=== PATIENT | female | born 1980 | race Caucasian/White ===

== ENCOUNTER → 2016-06-07 | Outpatient (REF) | payer OTHER | LOC: M SFHCLERA 20:37 | PROVIDERS: ATTEND Nurse Practitioner Family | DX: R50.9 Fever, unspecified (principal) ==

== ENCOUNTER → 2016-09-19 | Outpatient (REF) | payer OTHER ==
[2016-09-19 18:19] LABS: ANION GAP 7 MEQ/L (8-16); BLOOD UREA NITROGEN 8 MG/DL (7-18); CALCIUM LEVEL 9.3 MG/DL (8.5-10.1); CARBON DIOXIDE LEVEL 28 MEQ/L (21-32); CHLORIDE LEVEL 104 MEQ/L (98-107); CHOLESTEROL LEVEL 211 MG/DL (<200); GLOMERULAR FILTRATION RATE > 60.0 (>60); GLUCOSE, FASTING 86 MG/DL (70-105); POTASSIUM SERUM 4.6 MEQ/L (3.5-5.1); SODIUM LEVEL 139 MEQ/L (136-145); TRIGLYCERIDES LEVEL 223 MG/DL (<150)
== END ==
LOC: M SFHCLERA 10:27
PROVIDERS: ATTEND Family Medicine
DX: R73.02 Impaired glucose tolerance (oral) (principal); E78.5 Hyperlipidemia, unspecified

== ENCOUNTER → 2016-09-26 | Outpatient (CLI) | payer OTHER ==
--- NOTE | 2016-09-27 02:57 | REP ---
Clinical: Pain . Technique: AP, lateral, bilateral oblique views right foot . Findings: The osseous structures and joint spaces are intact and normal. There is no evidence for acute fracture or dislocation. Surrounding soft tissues are unremarkable. No subcutaneous emphysema or radiodense foreign body. Impression: Normal examination . No acute fracture or dislocation. Signed by Noe George MD 09/27/2016 02:49 A
== END ==
LOC: M LRY 08:56
PROVIDERS: ATTEND Family Medicine
DX: M79.674 Pain in right toe(s) (principal)

== ENCOUNTER → 2016-09-26 | Outpatient (REF) | payer OTHER ==
[2016-09-26 11:42] LABS: BASO % 0.6 % (0.0-1.0); EOS % 0.7 % (0.0-3.0); LARGE UNSTAINED CELL # 0.1 K/mm3 (0.0-0.4); LARGE UNSTAINED CELL % 1.1 % (0.0-4.0); LYMPH # 1.7 K/mm3 (1.5-4.5); LYMPH % 24.2 % (24.0-44.0); MEAN CORPUSCULAR HEMOGLOBIN 30.3 pg (27.0-33.0); MEAN CORPUSCULAR HGB CONC 34.1 g/dl (32.0-36.5); MONO # 0.4 K/mm3 (0.0-0.8); MONO % 5.6 % (0.0-5.0); NEUTROPHILS # 4.5 K/mm3 (1.8-7.7); NEUTROPHILS % 67.7 % (36.0-66.0); PLATELET COUNT, AUTOMATED 293 k/mm3 (150-450); RED CELL DISTRIBUTION WIDTH 12.4 % (11.5-14.5); WHITE BLOOD COUNT 6.6 K/mm3 (4.0-10.0)
[2016-09-26 12:08] LABS: FREE T4 1.07 NG/DL (0.76-1.46)
== END ==
LOC: M SFHCLERA 08:33
PROVIDERS: ATTEND Family Medicine
DX: F34.1 Dysthymic disorder (principal)

== ENCOUNTER → 2017-03-09 | Outpatient (CLI) | payer OTHER ==
[2017-03-15 10:11] LABS: H PYLORI STOOL ANTIGEN Negative (Negative)
[2017-03-15 10:11] LABS: IGASUB3 31.8 mg/dL (13.4-97.9); IgA SERUM (part of Subclasses) 288 mg/dL (87-352); O+P EXAM Final report (.); TISSUE TRANSGLUTAMINASE IgA <2 U/mL (0-3)
== END ==
LOC: M LAB 15:40
DX: R19.7 Diarrhea, unspecified (principal)
CPT/HCPCS: 82784

== ENCOUNTER 2017-03-27 09:19 | Day surgery (SDC) | payer OTHER ==
[2017-03-27] MEDS: NS 1,000 ML IV (10:21)
[2017-03-27] MEDS ORDERED: PROPOFOL 200 MG/20 ML VIAL As Ordered ×2 (11:27→11:29)
[2017-03-27] MEDS ORDERED: LIDOCAINE 2% INJ 100 MG/5 ML SDV (FOR ANES.) As Ordered (11:27)
[2017-03-27] MEDS ORDERED: ESMOLOL INJ 100MG/10ML VIAL As Ordered (11:37)
== END 2017-03-27 12:31 | disposition home or self-care (01) ==
LOC: M OPP 09:19
DX: K62.5 Hemorrhage of anus and rectum (principal); R19.7 Diarrhea, unspecified; K57.30 Diverticulosis of large intestine without perforation or abscess without bleeding; K64.8 Other hemorrhoids; E78.5 Hyperlipidemia, unspecified; E11.9 Type 2 diabetes mellitus without complications; F41.9 Anxiety disorder, unspecified; F43.10 Post-traumatic stress disorder, unspecified; E28.2 Polycystic ovarian syndrome; Z88.0 Allergy status to penicillin; Z91.040 Latex allergy status; Z79.899 Other long term (current) drug therapy; Z80.3 Family history of malignant neoplasm of breast; Z80.1 Family history of malignant neoplasm of trachea, bronchus and lung; Z80.41 Family history of malignant neoplasm of ovary
CPT/HCPCS: 45380

== ENCOUNTER → 2017-03-30 | Outpatient (REF) | payer OTHER ==
[2017-03-31 12:13] LABS: ALBUMIN 3.9 GM/DL (3.2-5.2); ALBUMIN/GLOBULIN RATIO 1.15 (1.00-1.93); ALKALINE PHOSPHATASE 49 U/L (45-117); ALT/SGPT 21 U/L (12-78); ANION GAP 6 MEQ/L (8-16); AST/SGOT 18 U/L (7-37); BILIRUBIN,TOTAL 0.6 MG/DL (0.2-1.0); BLOOD UREA NITROGEN 11 MG/DL (7-18); CALCIUM LEVEL 9.3 MG/DL (8.5-10.1); CARBON DIOXIDE LEVEL 29 MEQ/L (21-32); CHLORIDE LEVEL 104 MEQ/L (98-107); CREATININE FOR GFR 0.74 MG/DL (0.55-1.02); GLOMERULAR FILTRATION RATE > 60.0 (>60); GLUCOSE, FASTING 71 MG/DL (70-100); POTASSIUM SERUM 4.6 MEQ/L (3.5-5.1); SODIUM LEVEL 139 MEQ/L (136-145); TOTAL PROTEIN 7.3 GM/DL (6.4-8.2)
[2017-03-31 12:27] LABS: BASO # 0.1 10^3/uL (0.0-0.2); BASO % 1.1 % (0.0-1.0); EOS # 0.1 10^3/uL (0.0-0.50); EOS % 1.3 % (0.0-3.0); HEMOGLOBIN 14.3 g/dl (12.0-16.0); IMMATURE GRANULOCYTE % 0.3 % (0-0); LYMPH # 2.3 10^3/uL (1.5-4.5); LYMPH % 30.6 % (24.0-44.0); MEAN CORPUSCULAR HEMOGLOBIN 29.2 pg (27.0-33.0); MEAN CORPUSCULAR HGB CONC 33.3 g/dl (32.0-36.5); MEAN CORPUSCULAR VOLUME 87.8 fl (80.0-96.0); MONO # 0.6 10^3/uL (0.0-0.8); MONO % 7.4 % (0.0-5.0); NEUTROPHILS # 4.5 10^3/uL (1.8-7.7); NEUTROPHILS % 59.3 % (36.0-66.0); PLATELET COUNT, AUTOMATED 337 10^3/uL (150-450); RED CELL DISTRIBUTION WIDTH 11.9 % (11.5-14.5); WHITE BLOOD COUNT 7.6 10^3/uL (4.0-10.0)
== END ==
LOC: M SFHCLERA 16:08
DX: R10.9 Unspecified abdominal pain (principal)

== ENCOUNTER → 2017-07-03 | Outpatient (REF) | payer OTHER ==
[2017-07-04 13:29] LABS: ESTIMATED AVERAGE GLUCOSE 117 MG/DL (60-110); HEMOGLOBIN A1c 5.7 %
== END ==
LOC: M SFHCLERA 15:19
DX: E28.2 Polycystic ovarian syndrome (principal); Z79.899 Other long term (current) drug therapy
CPT/HCPCS: 83036

== ENCOUNTER → 2017-11-02 | Outpatient (CLI) | payer MEDICARE, OTHER | LOC: M LRY 14:26 | DX: R63.5 Abnormal weight gain (principal); N39.46 Mixed incontinence ==

== ENCOUNTER → 2017-11-02 | Outpatient (REF) | payer MEDICARE, OTHER ==
[2017-11-02 20:41] LABS: BASO # 0.1 10^3/uL (0.0-0.2); BASO % 0.6 % (0.0-1.0); EOS # 0.1 10^3/uL (0.0-0.50); HEMATOCRIT 39.4 % (36.0-47.0); HEMOGLOBIN 13.3 g/dl (12.0-15.5); IMMATURE GRANULOCYTE % 0.2 % (0-3.0); LYMPH # 2.4 10^3/uL (1.5-4.5); LYMPH % 29.4 % (24.0-44.0); MEAN CORPUSCULAR HGB CONC 33.8 g/dl (32.0-36.5); MONO # 0.6 10^3/uL (0.0-0.8); MONO % 7.1 % (0.0-5.0); NEUTROPHILS % 61.7 % (36.0-66.0); PLATELET COUNT, AUTOMATED 307 10^3/uL (150-450); RED BLOOD COUNT 4.58 10^6/uL (4.00-5.40); RED CELL DISTRIBUTION WIDTH 12.6 % (11.5-14.5); WHITE BLOOD COUNT 8.1 10^3/uL (4.0-10.0)
[2017-11-02 20:51] LABS: APPEARANCE, URINE HAZY (CLEAR); BACTERIA, URINE AUTO NEGATIVE (NEGATIVE); BILIRUBIN, URINE AUTO NEGATIVE (NEGATIVE); BLOOD, URINE BLOOD NEGATIVE (NEGATIVE); COLOR, URINE YELLOW (YELLOW); GLUCOSE, URINE (UA) AUTO 1+ mg/dL (NEGATIVE); KETONE, URINE AUTO NEGATIVE (NEGATIVE); LEUKOCYTE ESTERASE, URINE AUTO NEGATIVE (NEGATIVE); NITRITE, URINE AUTO NEGATIVE (NEGATIVE); PROTEIN, URINE AUTO NEGATIVE (NEGATIVE); RBC, URINE AUTO 0 /HPF (0-3); SQUAMOUS EPITHELIAL CELL UR AU 0 /HPF (0-6); WBC, URINE AUTO 0 /HPF (0-3)
[2017-11-02 20:53] LABS: ALBUMIN 3.3 GM/DL (3.2-5.2); ALBUMIN/GLOBULIN RATIO 0.92 (1.00-1.93); ALKALINE PHOSPHATASE 46 U/L (45-117); ALT/SGPT 17 U/L (12-78); ANION GAP 5 MEQ/L (8-16); AST/SGOT 12 U/L (7-37); BILIRUBIN,TOTAL 0.5 MG/DL (0.2-1.0); BLOOD UREA NITROGEN 7 MG/DL (7-18); CALCIUM LEVEL 9.1 MG/DL (8.5-10.1); CARBON DIOXIDE LEVEL 30 MEQ/L (21-32); CHLORIDE LEVEL 106 MEQ/L (98-107); CREATININE FOR GFR 0.76 MG/DL (0.55-1.30); FREE T4 0.94 NG/DL (0.76-1.46); GLOMERULAR FILTRATION RATE > 60.0 (>60); GLUCOSE, FASTING 103 MG/DL (70-100); POTASSIUM SERUM 4.3 MEQ/L (3.5-5.1); SODIUM LEVEL 141 MEQ/L (136-145); THYROID STIMULATING HORMONE 0.943 uIU/ML (0.358-3.740); TOTAL PROTEIN 6.9 GM/DL (6.4-8.2)
== END ==
LOC: M SFHCLERA 14:49
DX: R63.5 Abnormal weight gain (principal); N39.46 Mixed incontinence
CPT/HCPCS: 84443

== ENCOUNTER → 2018-04-19 | Outpatient (REF) | payer OTHER ==
[~2018-04-19] MED LIST: ALLE180T33 PO; METF500T13 PO; MULT1TAB10 PO; SERT25TA88; TRI-TAB; ZETI10TA30 PO
== END ==
LOC: M SFHCLERA 15:50
PROVIDERS: ATTEND Physician Assistant
DX: R50.9 Fever, unspecified (principal)

== ENCOUNTER → 2019-08-29 | Outpatient (REF) | payer OTHER ==
[~2019-08-29] MED LIST changes: +SERT25TA21; -SERT25TA88; +ZETI10TA16 PO; -ZETI10TA30 PO
== END ==
LOC: M SFHCLERA 10:32
PROVIDERS: ATTEND Physician Assistant
DX: R30.0 Dysuria (principal)

== ENCOUNTER → 2019-09-02 | Outpatient (REF) | payer OTHER ==
[2019-09-02 19:19] LABS: APPEARANCE, URINE CLEAR (CLEAR); BACTERIA, URINE AUTO 1+ (NEGATIVE); BILIRUBIN, URINE AUTO NEGATIVE (NEGATIVE); BLOOD, URINE BLOOD NEGATIVE (NEGATIVE); COLOR, URINE STRAW (YELLOW); GLUCOSE, URINE (UA) AUTO 1+ mg/dL (NEGATIVE); KETONE, URINE AUTO NEGATIVE (NEGATIVE); LEUKOCYTE ESTERASE, URINE AUTO NEGATIVE (NEGATIVE); MUCUS, URINE SMALL (NEGATIVE); NITRITE, URINE AUTO NEGATIVE (NEGATIVE); PROTEIN, URINE AUTO NEGATIVE (NEGATIVE); RBC, URINE AUTO 1 /HPF (0-3); SPECIFIC GRAVITY URINE AUTO 1.004 (1.002-1.035); SQUAMOUS EPITHELIAL CELL UR AU 0 /HPF (0-6); UROBILINOGEN, URINE AUTO 0.2 mg/dL (0.0-2.0); WBC, URINE AUTO 0 /HPF (0-3)
[2019-09-02 20:24] LABS: CHLAMYDIA DNA AMPLIFICATION NEGATIVE (NEGATIVE); GC DNA AMPLIFICATION NEGATIVE (NEGATIVE)
== END ==
LOC: M SFHCLERA 16:41
PROVIDERS: ATTEND Family Medicine
DX: R10.9 Unspecified abdominal pain (principal)

== ENCOUNTER → 2019-09-12 | Outpatient (CLI) | payer BC, OTHER ==
--- NOTE | 2019-09-13 03:06 | REP ---
REASON FOR EXAM: Pelvic pain. There are no priors for comparison. Transvesical and transvaginal imaging was obtained. The uterus measures 8.9 x 4 x 4.7 cm. The parenchymal echo pattern is within normal limits. The endometrial echo complex is within normal limits, measuring 5 mm in its greatest thickness. The right ovary measures 3 x 2.3 x 2.4 cm. Within the right ovary, there is a 2.4 x 1.9 x 1.9 cm sized anechoic structure, which exhibits posterior wall enhancement and increased through-transmission, consistent with a simple cyst. The right ovarian RI is 0.59. Left ovary measures 2 x 1.2 x 1.5 cm and is within normal limits. Urinary bladder measures 14 x 9 x 9 cm. IMPRESSION: Simple right ovarian cyst, as described above. Electronically Signed by Kenan Cohen DO 09/13/2019 09:13 A
== END ==
LOC: M LRY 09:20
PROVIDERS: ATTEND Family Medicine
DX: N83.201 Unspecified ovarian cyst, right side (principal)

== ENCOUNTER → 2020-08-27 | Outpatient (CLI) | payer BC, OTHER ==
[~2020-08-27] MED LIST changes: +ISOVUE-370 76% 100ML VIAL As Ordered ONE
--- NOTE | 2020-08-27 20:06 | REPVR ---
PROCEDURE INFORMATION: Exam: CTA Chest With Contrast Exam date and time: 08/27/2020 6:31 PM Age: 40 years old Clinical indication: Dyspnea; Additional info: Dyspnea, unspecified TECHNIQUE: Imaging protocol: Computed tomographic angiography of the chest with contrast. 3D rendering (Not supervised by radiologist): MIP and/or 3D reconstructed images were created by the technologist. Radiation optimization: All CT scans at this facility use at least one of these dose optimization techniques: automated exposure control; mA and/or kV adjustment per patient size (includes targeted exams where dose is matched to clinical indication); or iterative reconstruction. Contrast material: ISOVUE 370; Contrast volume: 75 ml; Contrast route: INTRAVENOUS (IV); COMPARISON: No relevant prior studies available. FINDINGS: Pulmonary arteries: Normal. No pulmonary emboli. Aorta: Unremarkable. No aortic aneurysm. No aortic dissection. Lungs: Unremarkable. No consolidation. No masses. Pleural spaces: Unremarkable. No pneumothorax. No pleural effusion. Heart: Unremarkable. No cardiomegaly. No pericardial effusion. Lymph nodes: Unremarkable. No enlarged lymph nodes. Bones/joints: Unremarkable. No acute fracture. Soft tissues: Unremarkable. IMPRESSION: No acute findings. Electronically signed by: James Dennis On 08/27/2020 20:05:38 PM
== END ==
LOC: M RAD 18:05
PROVIDERS: ATTEND Nurse Practitioner Family
DX: R06.00 Dyspnea, unspecified (principal)
CPT/HCPCS: 71275; Q9967

== ENCOUNTER → 2020-09-14 | Outpatient (CLI) | payer BC, OTHER ==
[~2020-09-14] MED LIST changes: +ALBU8.5H; +EZET10TA21 PO; +FLUO40CA; +HYDR-643; +IBUP-1022 PO; -ISOVUE-370 76% 100ML VIAL As Ordered ONE; +OXYB5TAB10; +OXYC1TAB23 PO; +TRAZ-252; +ZYRTTAB8 PO
== END ==
LOC: M LABSMTC 09:47
PROVIDERS: ATTEND Anesthesiology
DX: Z01.818 Encounter for other preprocedural examination (principal); Z11.52 Encounter for screening for COVID-19

== ENCOUNTER 2020-09-18 08:09 | Day surgery (SDC) | payer BC, OTHER ==
[2020-09-18] VITALS (7 sets, daily range): BP systolic 99–152; BP diastolic 59–93
[~2020-09-18] VITALS: Ht 157.5 cm; Wt 83.4 kg
[~2020-09-18 08:09] MED LIST changes: +HYDROmorphone HCL 2 MG/ML 1ML VIAL (J1170) As Ordered ONE; -IBUP-1022 PO; +KETOROLAC 60MG 2ML VIAL As Ordered ONE; +LIDOCAINE 1% MDV 20ML VIAL SQ PRN; +LIDOCAINE 2% 100MG/5ML SDV (FOR ANES.) As Ordered ONE; +LR 1,000 ML IV ONE; +MIDAZOLAM INJ 2MG/2ML VIAL (J2250 PER 1MG) As Ordered ONE; +ONDANSETRON 4MG/2ML VIAL As Ordered ONE; -OXYC1TAB23 PO; +ROCURONIUM BROMIDE 50 MG/5 ML VIAL As Ordered ONE; +dexameTHASONE 4 MG/ML 1ML VIAL (J1100 PER 1MG) As Ordered ONE; +fentaNYL 100 MCG/2 ML INJECTION (J3010) As Ordered ONE; +propofoL 200 MG/20 ML VIAL As Ordered ONE
[2020-09-18 08:40] LABS: HEMATOCRIT 41.6 % (36.0-47.0); HEMOGLOBIN 13.7 g/dl (12.0-15.5); MEAN CORPUSCULAR HEMOGLOBIN 28.7 pg (27.0-33.0); MEAN CORPUSCULAR HGB CONC 32.9 g/dl (32.0-36.5); PLATELET COUNT, AUTOMATED 322 10^3/uL (150-450); RED BLOOD COUNT 4.78 10^6/uL (4.00-5.40)
[2020-09-18] MEDS ORDERED: ceFAZolin SOD 2 GM in IV 1 EA IV ONE (09:00)
[2020-09-18 09:03] LABS: BLOOD UREA NITROGEN 11 MG/DL (7-18); CALCIUM LEVEL 8.7 MG/DL (8.5-10.1); CARBON DIOXIDE LEVEL 24 MEQ/L (21-32); CHLORIDE LEVEL 110 MEQ/L (98-107); CREATININE FOR GFR 0.79 MG/DL (0.55-1.30); GLOMERULAR FILTRATION RATE > 60.0 (>58); GLUCOSE, FASTING 100 MG/DL (70-100); POTASSIUM SERUM 4.2 MEQ/L (3.5-5.1); SODIUM LEVEL 139 MEQ/L (136-145)
[2020-09-18] MEDS ORDERED: BUPIVACAINE HCL 0.25% 10ML VIAL As Ordered ONE (09:13)
[2020-09-18] MEDS ORDERED: ACETAMINOPHEN 1000MG 100ML IV BTL (OFIRMEV) (J0131 PER 10MG) As Ordered ONE (09:37)
[2020-09-18] MEDS ORDERED: SUGAMMADEX SODIUM 500 MG/5 ML VIAL (BRIDION) As Ordered ONE (10:01)
[2020-09-18] MEDS ORDERED: ROCURONIUM BROMIDE 50 MG/5 ML VIAL As Ordered ONE (10:15)
--- NOTE | 2020-09-18 11:31 | ROOPDOC ---
[facility] Report Of Operation Report of Operation DATE OF PROCEDURE: 09/18/20 OPERATIVE REPORT: Preoperative diagnosis: Menorrhagia, pelvic pain. Postoperative diagnosis: Same. Procedure: Robotic-assisted laparoscopic hysterectomy, right salpingo- oophorectomy, left salpingectomy, cystoscopy. Surgeon: Meron Aguilera M.D. Market Development Analyst: Bree Echavarria NP EBL: 100 mL's. Urine output: 100 mL's. Operative summary: Patient was taken to the operating room where general endotracheal anesthesia was induced. She was prepped and draped in sterile fashion in the dorsal lithotomy position. A Renteria Catheter was placed. A V care uterine manipulator was placed. A Periumbilical incision was made with a scalpel. A Veress needle was placed through this incision. Intra-abdominal location of Veress needle was assessed with saline filled syringe. A pneumoperitoneum was created. The Veress needle was removed. An 8 mm trocar using the Visiport was inserted through this incision. Three 8 mm suprapubic po rts were placed under direct visualization The patient was placed in Trendelenburg position. The da Cristy surgical robot was docked to the ports. Using the fenestrated bipolar instrument and vessel sealer., the right IP ligament and broad ligaments were coagulated and incised. The round ligaments were coagulated and incised. The anterior and posterior leaves of the broad ligament were . Bladder flap was created. The uterine vessels were coagulated and incised using monopolar Endo An. A colpotomy was created in the upper vagina at the level of the V care Cup. The specimen including the uterus, cervix, fallopian tubes and right ovary was removed through the vagina. The vaginal cuff was closed with #1 V lock suture in running fashion. Cystoscopy was performed using a 70 cystoscope. Bilateral ureteral jets were identified. No evidence of injury to the bladder. The cystoscope was removed. All instruments removed. The skin was closed with 4-0 Monocryl subcuticular sutures. Bree Echavarria NP assisted with all aspects of the procedure. She helped position the patient. She helped insert the ports and manipulate the uterus. She removed the specimen. MERON AGUILERA MD Sep 18, 2020 11:31
[2020-09-18] MEDS ORDERED: OXYC1TAB23 PO (11:34)
[2020-09-18] MEDS ORDERED: fentaNYL 100 MCG/2 ML INJECTION (J3010) As Ordered ONE (11:34)
[2020-09-18] MEDS ORDERED: IBUP-1022 PO (11:36)
[2020-09-18] MEDS ORDERED: ONDANSETRON 4MG/2ML VIAL IV PRN ×2 (11:40→11:50)
[2020-09-18] MEDS ORDERED: LR 1,000 ML IV SCH ×2 (11:40→11:50)
[2020-09-18] MEDS ORDERED: MEPERIDINE INJ 25 MG/ML VIAL (J2175) IV PRN (11:40)
[2020-09-18] MEDS: fentaNYL 100 MCG/2 ML INJECTION (J3010) IV PRN ×4 (11:45→12:01)
[2020-09-18] MEDS: oxyCODONE 5MG TAB PO PRN ×2 (11:58→12:35)
[2020-09-18] MEDS ORDERED: MORPHINE 4 MG/ML 1ML VIAL/SYRINGE (J2270) IV PRN (15:30)
[2020-09-18] MEDS ORDERED: PERCOCET 5MG/325MG TAB PO PRN ×2 (15:30)
[2020-09-18] MEDS: DOCUSATE SODIUM 100MG CAPSULE PO SCH (22:22)
[2020-09-19] MEDS: KETOROLAC 30 MG/ML 1ML VIAL IV PRN ×2 (02:51→08:57)
[2020-09-19 06:00] VITALS: BP 125/77
[2020-09-19] MEDS: DOCUSATE SODIUM 100MG CAPSULE PO SCH (08:56)
[2020-09-19 10:00] VITALS: BP 139/40
== END 2020-09-19 13:15 | disposition home or self-care (01) ==
LOC: M SDC 08:09 → M MS5PR 13:35 → M SDC 09-19 13:15
PROVIDERS: ATTEND Specialist
DX: N92.0 Excessive and frequent menstruation with regular cycle (principal); E78.5 Hyperlipidemia, unspecified; K58.8 Other irritable bowel syndrome; K21.9 Gastro-esophageal reflux disease without esophagitis; F43.10 Post-traumatic stress disorder, unspecified; F41.9 Anxiety disorder, unspecified; E28.2 Polycystic ovarian syndrome; R73.09 Other abnormal glucose; Z79.84 Long term (current) use of oral hypoglycemic drugs; Z79.899 Other long term (current) drug therapy; Z88.0 Allergy status to penicillin; Z91.040 Latex allergy status
CPT/HCPCS: 36415; 58570; 80048; 81025; 85027; 86850; 86900; 86901; 88307; 96374; 96375; 96376; J0131; J0690; J1100; J1170; J1885; J2250; J2405; J3010; S2900

== ENCOUNTER → 2020-10-23 | Outpatient (CLI) | payer BC, OTHER ==
[~2020-10-23] MED LIST changes: -HYDROmorphone HCL 2 MG/ML 1ML VIAL (J1170) As Ordered ONE; +IBUP-1022 PO; -KETOROLAC 60MG 2ML VIAL As Ordered ONE; -LIDOCAINE 1% MDV 20ML VIAL SQ PRN; -LIDOCAINE 2% 100MG/5ML SDV (FOR ANES.) As Ordered ONE; -LR 1,000 ML IV ONE; -MIDAZOLAM INJ 2MG/2ML VIAL (J2250 PER 1MG) As Ordered ONE; -ONDANSETRON 4MG/2ML VIAL As Ordered ONE; +OXYC1TAB23 PO; -ROCURONIUM BROMIDE 50 MG/5 ML VIAL As Ordered ONE; -dexameTHASONE 4 MG/ML 1ML VIAL (J1100 PER 1MG) As Ordered ONE; -fentaNYL 100 MCG/2 ML INJECTION (J3010) As Ordered ONE; -propofoL 200 MG/20 ML VIAL As Ordered ONE
[2020-10-23 16:08] LABS: HEMOGLOBIN A1c 5.6 %
[2020-10-23 16:17] LABS: ALBUMIN 3.6 GM/DL (3.2-5.2); ALT/SGPT 53 U/L (12-78); BILIRUBIN,TOTAL 0.6 MG/DL (0.2-1.0); BLOOD UREA NITROGEN 8 MG/DL (7-18); CALCIUM LEVEL 8.8 MG/DL (8.5-10.1); CARBON DIOXIDE LEVEL 27 MEQ/L (21-32); CHLORIDE LEVEL 107 MEQ/L (98-107); CHOLESTEROL LEVEL 219 MG/DL (<200); CHOLESTEROL RISK RATIO 3.369 (<5); CREATININE FOR GFR 0.85 MG/DL (0.55-1.30); GLOMERULAR FILTRATION RATE > 60.0 (>58); GLUCOSE, FASTING 107 MG/DL (70-100); HDL CHOLESTEROL 65 MG/DL (>40); LDL CHOLESTEROL 134 MG/DL (<100); NON-HDL-C 154 MG/DL; POTASSIUM SERUM 4.5 MEQ/L (3.5-5.1); SODIUM LEVEL 139 MEQ/L (136-145); TOTAL PROTEIN 6.9 GM/DL (6.4-8.2); TRIGLYCERIDES LEVEL 102 MG/DL (<150)
== END ==
LOC: M WUC 10:47
PROVIDERS: ATTEND Student in an Organized Health Care Education/Training Program
DX: Z00.00 Encounter for general adult medical examination without abnormal findings (principal); E78.5 Hyperlipidemia, unspecified; R73.02 Impaired glucose tolerance (oral)

== ENCOUNTER → 2021-04-01 | Outpatient (CLI) | payer BC, OTHER | LOC: M CARPUL 13:41 | PROVIDERS: ATTEND Nurse Practitioner Adult Health | DX: R06.02 Shortness of breath (principal) ==

== ENCOUNTER → 2023-05-06 | Outpatient (CLI) | payer BC, OTHER ==
[~2023-05-06] MED LIST changes: +EZET10TA58 PO; -OXYB5TAB10; +OXYB5TAB14; -ZETI10TA16 PO
[2023-05-06 14:29] LABS: HEMATOCRIT 41.9 % (36.0-47.0); HEMOGLOBIN 14.2 g/dl (12.0-15.5); MEAN CORPUSCULAR HEMOGLOBIN 29.7 pg (27.0-33.0); MEAN CORPUSCULAR HGB CONC 33.9 g/dl (32.0-36.5); MEAN CORPUSCULAR VOLUME 87.7 fl (80.0-96.0); PLATELET COUNT, AUTOMATED 341 10^3/uL (150-450); RED BLOOD COUNT 4.78 10^6/uL (4.00-5.40); WHITE BLOOD COUNT 9.6 10^3/uL (4.0-10.0)
[2023-05-06 14:56] LABS: ALBUMIN 3.7 G/DL (3.2-5.2); ALKALINE PHOSPHATASE 43 U/L (46-116); ALT/SGPT 18 U/L (7.0-40); AST/SGOT 11 U/L (<34); BILIRUBIN,TOTAL 0.7 MG/DL (0.3-1.2); BLOOD UREA NITROGEN 9 MG/DL (9-23); CALCIUM LEVEL 8.9 MG/DL (8.5-10.1); CARBON DIOXIDE LEVEL 31 MMOL/L (20-31); CHLORIDE LEVEL 105 MMOL/L (98-107); GLOMERULAR FILTRATION RATE > 60.0 (>58); GLUCOSE, FASTING 87 MG/DL (60-100); IRON (FE) 98 UG/DL (50-170); PERCENT SATURATION 35.1 % (13.2-45.0); POTASSIUM SERUM 4.2 MMOL/L (3.5-5.1); SODIUM LEVEL 138 MMOL/L (136-145); TOTAL IRON BINDING CAPACITY 279 UG/DL (250-425); TOTAL PROTEIN 6.3 G/DL (5.7-8.2)
[2023-05-06 14:57] LABS: FERRITIN 51.5 NG/ML (7.3-270.7); TOTAL 25(OH) VITAMIN D 33.2 NG/ML (20.0-100.0); VITAMIN B12 LEVEL 602 PG/ML (211-911)
[2023-05-06 14:58] LABS: THYROID STIMULATING HORMONE 1.027 uIU/ML (0.55-4.78)
== END ==
LOC: M LAB 13:36
PROVIDERS: ATTEND Physician Assistant
DX: F41.9 Anxiety disorder, unspecified (principal); M79.672 Pain in left foot; M54.50 Low back pain, unspecified

== ENCOUNTER → 2023-06-27 | Outpatient (CLI) | payer BC ==
[2023-06-27 12:53] LABS: LUTEINIZING HORMONE 14.2 mIU/ML; THYROID STIMULATING HORMONE 1.1 uIU/ML (0.55-4.78)
[2023-06-27 12:54] LABS: FOLLICLE STIMULATING HORMONE 19.4 mIU/ML
== END ==
LOC: M LAB 11:22
PROVIDERS: ATTEND Physician Assistant
DX: R53.83 Other fatigue (principal)

== ENCOUNTER → 2024-01-17 | Outpatient (CLI) | payer BC ==
[2024-01-17 15:24] LABS: FOLLICLE STIMULATING HORMONE 4.6 mIU/ML; LUTEINIZING HORMONE 2.7 mIU/ML
[2024-01-17 15:25] LABS: ESTRADIOL 99.3 PG/ML
== END ==
LOC: M PLALAB 12:01
PROVIDERS: ATTEND Specialist
DX: N95.1 Menopausal and female climacteric states (principal)

== ENCOUNTER → 2025-01-24 | Outpatient (CLI) | payer BC ==
[~2025-01-24] MED LIST changes: -EZET10TA21 PO; +EZET10TA57 PO; -IBUP-1022 PO; +IBUP600T42 PO
== END ==
LOC: M RAD 13:49
PROVIDERS: ATTEND Physician Assistant
DX: E04.9 Nontoxic goiter, unspecified (principal)